=== PATIENT | female | born 1970 | race Caucasian/White ===

== ENCOUNTER 2017-08-23 10:24 | Emergency (ER) | payer MEDICAID ==
[~2017-08-23] VITALS: Ht 172.7 cm; Wt 138.1 kg
[~2017-08-23 10:24] MED LIST: ALBU0.0971 IH; AMOX-842 PO; BUPR-10 PO; FERR325E14 PO; FLUO-387 PO; IMI25 PO; LORA10TA19 PO; METF1000 PO; METO25TA PO; OMEP40EC1 PO; PRAV20TA2 PO; QUET50TA PO; VAS5 PO
[2017-08-23 10:31] VITALS: BP 145/94
--- NOTE | 2017-08-23 10:40 | NUR ---
PATIENT PRESENTS TO ED WITH CHRONIC HACKING COUGH WITH BLOODY SPUTUM AND SHARP PAIN TO THROAT X 2 YR . PT STATES IT CAUSES EMESIS WHEN THE COUGHING GETS BAD SKIN IS PINK/WARM/DRY; AAOX4 WITH EVEN AND STEADY GAIT; LUNGS CLEAR BL; HR EVEN AND REGULAR; PT DENIES ANY FEVER PATIENT STATES PAIN OF 8/10 AT THIS TIME; VSS; PATIENT POSITIONED FOR COMFORT; HOB ELEVATED; BEDRAILS UP X2; BED DOWN. ER MD MADE AWARE OF PT STATUS.
--- NOTE | 2017-08-23 10:58 | NUR ---
PT TO X-RAY VIA WHEEL CHAIR
--- NOTE | 2017-08-23 11:09 | NUR ---
RETURNED FROM X-RAY
--- NOTE | 2017-08-23 11:15 | NUR ---
BLOOD SAMPLE COLLECTED BY PHLEBOMIST
[2017-08-23 11:24] LABS: HEMATOCRIT 33.1 % (36-48); HEMOGLOBIN 10.1 g/dL (12.0-16.0); MEAN CORPUSCULAR HEMOGLOBIN 20 pg (27-31); MEAN CORPUSCULAR HGB CONC 31 g/dL (33-37); MEAN CORPUSCULAR VOLUME 67 fL (80-94); PLATELET COUNT (AUTO) 323 K/uL (140-450); RED BLOOD CELL COUNT(AUTO) 4.98 MIL/uL (4.20-5.40); RED CELL DISTRIBUTION WIDTH 17.9 % (11.6-13.7); WHITE BLOOD COUNT (AUTO) 17.5 K/uL (4.8-10.8)
[2017-08-23 11:37] LABS: ANION GAP 8.8 (8-16); CARBON DIOXIDE 29.9 mmol/L (21-32); POTASSIUM 3.7 mmol/L (3.5-5.1)
[2017-08-23 11:38] LABS: PROTHROMBIN TIME 9.9 secs (10.8-13.4)
[2017-08-23 11:43] LABS: LYMPHOCYTES % (MANUAL) 29 % (20-46); MONOCYTES % (MANUAL) 3 % (5-12); TOTAL BILIRUBIN 0.2 mg/dL (0.0-1.0)
[2017-08-23 12:02] LABS: ALBUMIN 3.5 g/dL (3.4-5.0)
[2017-08-23 12:29] VITALS: BP 145/94
--- NOTE | 2017-08-23 12:30 | NUR ---
Patient discharged with v/s stable. Written and verbal after care instructions given and explained. Patient alert, oriented and verbalized understanding of instructions. Ambulatory with steady gait. All questions addressed prior to discharge. ID band removed. Patient advised to follow up with PMD. Rx of levaqiuin 750 mg 1 tab po daily given. Patient educated on indication of medication including possible reaction and side effects. Opportunity to ask questions provided and answered.
== END 2017-08-23 12:30 | disposition home or self-care (01) ==
LOC: MED 10:24
DX: J44.9 Chronic obstructive pulmonary disease, unspecified (principal); E11.9 Type 2 diabetes mellitus without complications; I10 Essential (primary) hypertension
CPT/HCPCS: 36415; 71020; 80053; 84484; 85025; 85610; 85730; 93005; 99285

== ENCOUNTER 2017-09-21 13:13 | Emergency (ER) | payer MEDICAID ==
[~2017-09-21] VITALS: Ht 172.7 cm; Wt 136.1 kg
[2017-09-21 13:27] VITALS: BP 101/50
--- NOTE | 2017-09-21 15:00 | NUR ---
PT CALLED FROM LOBBY; NO ANSWER; PATIENT LEFT WITHOUT BEING SEEN BY DR. MARMOLEJO. NO FURTHER CARE PROVIDED FOR PATIENT.
== END 2017-09-21 15:00 | disposition left against medical advice (07) ==
LOC: MED 13:13
DX: Z53.21 Procedure and treatment not carried out due to patient leaving prior to being seen by health care provider (principal)

== ENCOUNTER 2017-09-23 23:22 | Emergency (ER) | payer MEDICAID ==
[~2017-09-23] VITALS: Ht 172.7 cm; Wt 136.1 kg
[2017-09-23 23:33] VITALS: BP 140/80
--- NOTE | 2017-09-23 23:40 | NUR ---
to lobby saba vss, a/w bed, maritza noted
--- NOTE | 2017-09-24 01:00 | NUR ---
PATIENT IS A 47 Y/O FEMALE WHO PRESENTS TO THE ED C/O COUGH. PT STATES, "I HAVE BEEN COUGHING AND MY CHEST HURTS AND I FEEL LIKE THERE IS A BALLOON." PT REPORTS 10/10 HEAVY CHEST PAIN THAT DOES NOT RADIATE. PT DENIES CP, SOB, REPORTS VOMITING DENIES NAUSEA/DIARRHEA. PT AAOX4, RR EVEN/UNLABORED. PT REPOSITIONED FOR COMFORT, PT SITTING IN CHAIR. ER MD DR. WASHINGTON NOTIFIED. WILL CONTINUE TO MONITOR.
--- NOTE | 2017-09-24 02:05 | NUR ---
Patient discharged with v/s stable. Written and verbal after care instructions given and explained. Patient alert, oriented and verbalized understanding of instructions. Ambulatory with steady gait. All questions addressed prior to discharge. ID band removed. Patient advised to follow up with PMD. Rx of PREDNISONE AND AZITHROMYCIN given. Patient educated on indication of medication including possible reaction and side effects. Opportunity to ask questions provided and answered.
[2017-09-24 02:06] VITALS: BP 137/72
== END 2017-09-24 02:05 | disposition home or self-care (01) ==
LOC: MED 23:22
DX: R07.89 Other chest pain (principal); R05 Cough; J45.909 Unspecified asthma, uncomplicated; E11.9 Type 2 diabetes mellitus without complications; I10 Essential (primary) hypertension; Z79.899 Other long term (current) drug therapy; Z88.8 Allergy status to other drugs, medicaments and biological substances; Z79.84 Long term (current) use of oral hypoglycemic drugs
CPT/HCPCS: 99283

== ENCOUNTER 2018-08-14 19:38 | Emergency (ER) | payer MEDICAID ==
[~2018-08-14] VITALS: Ht 172.7 cm; Wt 127.0 kg
[2018-08-14 19:44] VITALS: BP 152/85
--- NOTE | 2018-08-14 19:45 | NUR ---
TO BED # 3 AMBULATORY, REPORT GIVEN TO HAJA SIDDIQUI
--- NOTE | 2018-08-14 19:51 | NUR ---
48/F CAME IN ED, C/O LATERAL R UPPER ARM PAIN AND SWELLING. SLIGHT REDNESS NOTED ON R UPPER ARM. PT REPORTS 6/10 PAIN, MILDLY RADIATING TO R FOREARM, REPORTS DEEP TENDERNESS. PT DENIES FEVER. HX ASTHMA, DM, HTN, DEPRESSION, PTSD
--- NOTE | 2018-08-14 19:52 | NUR ---
PT REPORTS HAVING SIMILAR S/S, WAS DX WITH STAPH INFECTION ON L UPPER ARM
--- NOTE | 2018-08-14 20:11 | NUR ---
Dr. Garsia evaluating patient at bedside.
--- NOTE | 2018-08-14 20:39 | NUR ---
Patient discharged with v/s stable. Written and verbal after care instructions given and explained. Patient alert, oriented and verbalized understanding of instructions. Ambulatory with steady gait. All questions addressed prior to discharge. ID band removed. Patient advised to follow up with PMD. Rx of BACTRIM, DIFLUCAN given. Patient educated on indication of medication including possible reaction and side effects. Opportunity to ask questions provided and answered.
[2018-08-14 20:47] VITALS: BP 145/80
== END 2018-08-14 20:39 | disposition home or self-care (01) ==
LOC: MED 19:38
DX: M79.601 Pain in right arm (principal); G89.29 Other chronic pain; M54.5 Low back pain; J45.909 Unspecified asthma, uncomplicated; E11.9 Type 2 diabetes mellitus without complications; I10 Essential (primary) hypertension; F32.9 Major depressive disorder, single episode, unspecified; Z98.890 Other specified postprocedural states; Z88.6 Allergy status to analgesic agent; Z79.2 Long term (current) use of antibiotics; Z79.84 Long term (current) use of oral hypoglycemic drugs; Z79.899 Other long term (current) drug therapy
CPT/HCPCS: 99283

== ENCOUNTER 2019-11-20 07:30 | Emergency (ER) | payer OTHER, MEDICAID ==
[~2019-11-20] VITALS: Ht 172.7 cm; Wt 135.2 kg
[~2019-11-20 07:30] MED LIST changes: +ENAL5TAB48 PO; -OMEP40EC1 PO; +OMEP40EC24 PO; -VAS5 PO
--- NOTE | 2019-11-20 07:35 | NUR ---
Patient ambulated to bed 4. RN evaluating patient at bedside.
[2019-11-20 07:39] VITALS: BP 137/86
--- NOTE | 2019-11-20 07:48 | NUR ---
Dr. Duran is evaluating the patient at bedside.
--- NOTE | 2019-11-20 07:53 | NUR ---
dr mitchell at bedside evaluating pt.
--- NOTE | 2019-11-20 07:53 | NUR ---
C/O LEFT SHOULDERT/ TRAPEZIUS PAIN EXACERBATION X 3 DAYS AGO AFTER LIFTING CAT LITTER STATES HAS HAD "PHLEBITIS" SAME SHOULDER BEFORE.PT AWAKE , ALERT , AFIBRILE AMBULATORY WITH STEADY GAIT . TENDERNESS ON LEFT SHOULDER , NO LIMITATION ON ROM. GOOD PULSE AND CAPILLARY REFILL BOTH HANDS. NO DISCOLORATION OR SWELLING NOTED HX--DEPRESSION, DM, HTN, ASTHMA, SPINAL SURGERIES RX---WELLBUTRIN/ PROZAC/ TOPAMAX/ METFORMIM
--- NOTE | 2019-11-20 08:06 | NUR ---
DR LOVE AT BEDSIDE REEVALUATING PT.
[2019-11-20] MEDS ORDERED: LIDOCAINE MPF 1% 10 MG/ML VIAL INJ ONE (08:10)
--- NOTE | 2019-11-20 08:16 | NUR ---
PT AWAKE AND ALERT COMFORTABLE ON BED, SIDES RAILS UP BED LOCK.
[2019-11-20 09:12] VITALS: BP 137/86
--- NOTE | 2019-11-20 09:12 | NUR ---
Patient discharged with v/s stable. Written and verbal after care instructions given and explained. Patient verbalized understanding. Ambulatory with steady gait. All questions addressed prior to discharge. Advised to follow up with PMD.excuse given for work.
== END 2019-11-20 09:12 | disposition home or self-care (01) ==
LOC: MED 07:30
DX: M62.830 Muscle spasm of back (principal); M25.512 Pain in left shoulder; J45.909 Unspecified asthma, uncomplicated; R00.0 Tachycardia, unspecified; E11.9 Type 2 diabetes mellitus without complications; I10 Essential (primary) hypertension; Z98.890 Other specified postprocedural states; Z79.899 Other long term (current) drug therapy; Z88.8 Allergy status to other drugs, medicaments and biological substances
CPT/HCPCS: 20552; 82948; 99284; J2001